=== PATIENT | female | born 1930 | race Caucasian/White ===

== ENCOUNTER 2017-05-07 11:09 | Emergency (ER) | payer MEDICARE, OTHER ==
[~2017-05-07] VITALS: Ht 152.4 cm; Wt 99.8 kg
[~2017-05-07 11:09] MED LIST: AMOXICILLIN500 MG PO; AMOXIL400 MG/5 M PO; ANTIVERT/2525 M1 PO; ANTIVERT/2525 MG PO; DIFLUCAN150 MG PO; LASIX40 MG PO; NORCO 325 MG-51 TAB PO; POTASSIUM20 MEQ PO; PRILOSEC20 M1 PO; ROBAXIN500 MG PO; ULTRAM50 MG PO; VASOTEC5 MG PO; VICODIN 500 MG-1 TAB PO; VITAMIN D1000 IU PO; ZANTAC150 MG PO; ZITHROMAX Z PA250 MG PO; ZOFRAN ODT4 MG SL
[2017-05-07 11:24] VITALS: BP 187/64
[2017-05-07 11:51] LABS: BASO # 0.1 10*3/uL (0.0-0.1); BASO % 0.6 % (0.0-1.0); EOS # 0.3 10*3/uL (0.0-0.4); EOS % 2.9 % (1.0-4.0); HEMATOCRIT 39.9 % (37.0-47.0); HEMOGLOBIN 13.4 g/dl (12.0-16.0); LYMPH # 3.3 10*3/uL (1.3-4.4); LYMPH % 35.4 % (27.0-41.0); MEAN CELL VOLUME 91.1 fl (81.0-99.0); MEAN CORPUSCULAR HGB 30.6 pg (27.0-31.0); MEAN CORPUSCULAR HGB CONC 33.6 g/dl (33.0-37.0); MEAN PLATELET VOLUME 10.7 fl (9.6-12.3); MONO # 0.6 10*3/uL (0.1-1.0); MONO % 6.3 % (3.0-9.0); NEUT % 54.4 % (47.0-73.0); PLATELET COUNT AUTOMATED 200 10*3/uL (130-400); RED BLOOD COUNT 4.38 10*6/uL (4.10-5.10); RED CELL DISTRI WIDTH 12.6 % (0-14.5); WHITE BLOOD COUNT 9.3 10*3/uL (4.8-10.8)
[2017-05-07 12:04] LABS: BUN 18 mg/dl (7-24); CARBON DIOXIDE 29 mmol/L (21-32); CHLORIDE 101 mmol/L (98-107); EST GLOM FILT AFRICAN AMERICAN > 60 ml/min; GLUCOSE 88 mg/dL (65-99); MAGNESIUM 2.1 mg/dL (1.5-2.1); POTASSIUM 3.4 mmol/L (3.5-5.1); SODIUM 140 mmol/L (136-145)
[2017-05-07] MEDS ORDERED: Meclizine25 MG PO (13:23)
== END 2017-05-07 13:38 | disposition home or self-care (01) ==
LOC: ED 11:09
PROVIDERS: Emergency Medicine
DX: H81.10 Benign paroxysmal vertigo, unspecified ear (principal); E87.6 Hypokalemia; R42 Dizziness and giddiness; R51 Headache; I25.10 Atherosclerotic heart disease of native coronary artery without angina pectoris; I10 Essential (primary) hypertension; E78.00 Pure hypercholesterolemia, unspecified; Z88.0 Allergy status to penicillin; Z88.6 Allergy status to analgesic agent; Z88.8 Allergy status to other drugs, medicaments and biological substances; Z88.4 Allergy status to anesthetic agent; Z79.899 Other long term (current) drug therapy

== ENCOUNTER → 2017-05-12 | Outpatient (CLI) | payer MEDICARE, OTHER ==
[~2017-05-12] MED LIST changes: +Meclizine25 MG PO
[2017-05-12 10:39] LABS: ALBUMIN 3.6 gm/dl (3.1-4.5); ALKALINE PHOSPHATASE 96 U/L (45-117); BUN 16 mg/dl (7-24); CHLORIDE 102 mmol/L (98-107); CHOLESTEROL 159 mg/dL (<200); HDL CHOLESTEROL 42 mg/dl (40-60); LDL CHOLESTEROL 84 mg/dL (9-159); POTASSIUM 3.8 mmol/L (3.5-5.1); SGOT/AST 21 IU/L (3-35); SGPT/ALT 13 U/L (12-78); SODIUM 139 mmol/L (136-145); TOTAL PROTEIN 7.8 gm/dL (6.4-8.2); TRIGLYCERIDES 166 mg/dl (<150); VLDL CHOLESTEROL 33 mg/dL (6-40)
== END | disposition home or self-care (01) ==
LOC: LAB 09:47
PROVIDERS: Family Medicine
DX: I25.10 Atherosclerotic heart disease of native coronary artery without angina pectoris (principal); E87.6 Hypokalemia; R60.0 Localized edema; E55.9 Vitamin D deficiency, unspecified; E78.00 Pure hypercholesterolemia, unspecified

== ENCOUNTER 2018-08-20 12:48 | Inpatient (IN) | payer MEDICARE, OTHER ==
[~2018-08-20] VITALS: Ht 152.4 cm; Wt 78.6 kg
--- NOTE | ~2018-08-20 | EKG ---
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
--- NOTE | ~2018-08-20 | CON ---
[place], [place] REPORT OF CONSULTATION NAME: KRISTI MUNOZ [facility] #: [id number] UNIT #: [id number] ROOM: 520 DOCTOR: DUC BALBUENA DPM BIRTHDATE: [birth year] DOS: 08/21/2018 SUBJECTIVE: This patient is seen today for care of elongated nails on both feet. States it has been some time since she has had her nails cut. PAST MEDICAL HISTORY: Includes coronary artery disease, dizziness, hypertension, gastroesophageal reflux disease, hiatal hernia, chronic venous insufficiency, vertigo, PVD, vitamin D deficiency. ALLERGIES: PENICILLINS, IODINE, NAPROXEN, METOPROLOL, PROCAINE AND NISOLDIPINE. CURRENT MEDICATIONS: Include potassium, lisinopril, Lovenox, Lasix, Antivert, Zofran, [place], nitro. PHYSICAL EXAMINATION: Upon lower extremity physical examination, pedal pulses are barely palpable. Skin temperature is cool to toes. Mild dependent edema is seen bilaterally with varicosities and pigment changes. Negative Homans sign bilaterally. Sensation appears grossly intact and symmetrical. No paresthesias are seen bilaterally. Muscle strength does appear full without any deficits. Mild contracture of lesser digits seen with no pain noted to palpation and range of motion of pedal joints. Plantar fat pad atrophy seen at the MPJs. Nails 1 through 5 bilaterally are thick, elongated, brittle, dystrophic with subungual debris present. No open areas seen at this time. No blisters or macerations. ASSESSMENT: Onychomycosis 1 through 5 bilaterally, PAD, venous insufficiency, hammertoe deformity. PLAN: Consult is performed. Manual debridement of mycotic nails 1 through 5 bilaterally in length and thickness to the level of the nail bed to reduce hazard of such infection. Discussed about elevating her legs to reduce peripheral edema. Shoe gear modifications to accommodate her pedal deformity. Follow up the patient in 9 weeks for continued foot care. Thanks for the opportunity to take part in care of this patient. DUC BALBUENA DPM CM:CONSTR:REPORT OF CONSULTATION 1229 08/22/18 0225 interface
[2018-08-20 12:49] VITALS: BP 192/98
[2018-08-20 13:13] LABS: BASO # 0.1 10*3/uL (0.0-0.1); BASO % 0.7 % (0.0-1.0); EOS # 0.2 10*3/uL (0.0-0.4); EOS % 2.9 % (1.0-4.0); HEMOGLOBIN 12.9 g/dl (12.0-16.0); LYMPH # 2.9 10*3/uL (1.3-4.4); LYMPH % 38.1 % (27.0-41.0); MEAN CELL VOLUME 92.9 fl (81.0-99.0); MEAN CORPUSCULAR HGB 30.7 pg (27.0-31.0); MEAN CORPUSCULAR HGB CONC 33.1 g/dl (33.0-37.0); MEAN PLATELET VOLUME 10.8 fl (9.6-12.3); MONO # 0.5 10*3/uL (0.1-1.0); NEUT # 3.9 10*3/uL (2.3-7.9); NEUT % 52.2 % (47.0-73.0); PLATELET COUNT AUTOMATED 211 10*3/uL (130-400); WHITE BLOOD COUNT 7.5 10*3/uL (4.8-10.8)
[2018-08-20 13:21] LABS: ACT PARTIAL THROMBO TIME 27.3 SECONDS (20.8-31.5)
[2018-08-20 13:31] LABS: ALBUMIN 3.8 gm/dl (3.1-4.5); ALKALINE PHOSPHATASE 86 U/L (45-117); BUN 10 mg/dl (7-24); CHLORIDE 106 mmol/L (98-107); CREATININE 0.71 mg/dL (0.55-1.02); LIPASE 92 U/L (73-393); POTASSIUM 4.1 mmol/L (3.5-5.1); SGOT/AST 20 IU/L (3-35); SGPT/ALT 14 U/L (12-78); SODIUM 140 mmol/L (136-145); TOTAL PROTEIN 7.4 gm/dL (6.4-8.2)
[2018-08-20 13:37] LABS: TROPONIN I < 0.015 ng/ml (<0.045)
[2018-08-20 14:01] VITALS: BP 199/67
[2018-08-20 14:30] LABS: BILIRUBIN NEGATIVE (NEGATIVE); BLOOD NEGATIVE (NEGATIVE); CLARITY SL CLOUDY (CLEAR); COLOR YELLOW (YELLOW); GLUCOSE NEGATIVE (NEGATIVE); KETONE TRACE (NEGATIVE); LEUKO ESTERASE 1+ (NEGATIVE); NITRITE NEGATIVE (NEGATIVE); SPECIFIC GRAVITY >= 1.030 (1.005-1.030); UROBILINOGEN 0.2 E.U./dl (0.2-1.0)
[2018-08-20 14:35] LABS: BACTERIA 2+; MUCOUS TRACE; RBC 0-2 rbc/hpf (0-2)
[2018-08-20 15:11] VITALS: BP 188/90; BP 199/67
[2018-08-20 16:45] VITALS: BP 160/80
[2018-08-20 20:00] VITALS: BP 155/71
[2018-08-21] VITALS: BP 150/65
[2018-08-21 06:42] LABS: BASO % 0.5 % (0.0-1.0); EOS # 0.1 10*3/uL (0.0-0.4); EOS % 1.7 % (1.0-4.0); HEMOGLOBIN 13.9 g/dl (12.0-16.0); LYMPH # 2.4 10*3/uL (1.3-4.4); LYMPH % 29.7 % (27.0-41.0); MEAN CELL VOLUME 90.7 fl (81.0-99.0); MEAN CORPUSCULAR HGB 30.8 pg (27.0-31.0); MEAN CORPUSCULAR HGB CONC 33.9 g/dl (33.0-37.0); MEAN PLATELET VOLUME 11.3 fl (9.6-12.3); MONO # 0.6 10*3/uL (0.1-1.0); MONO % 7.5 % (3.0-9.0); NEUT # 4.8 10*3/uL (2.3-7.9); NEUT % 60.4 % (47.0-73.0); PLATELET COUNT AUTOMATED 230 10*3/uL (130-400); RED BLOOD COUNT 4.52 10*6/uL (4.10-5.10)
[2018-08-21 07:05] LABS: BUN 9 mg/dl (7-24); CHLORIDE 102 mmol/L (98-107); CHOLESTEROL 205 mg/dL (<200); CREATININE 0.72 mg/dL (0.55-1.02); PHOSPHOROUS 4.5 mg/dL (2.5-4.9); POTASSIUM 3.5 mmol/L (3.5-5.1); SODIUM 141 mmol/L (136-145); TRIGLYCERIDES 143 mg/dl (<150); VLDL CHOLESTEROL 29 mg/dL (6-40)
[2018-08-21 07:16] LABS: HDL CHOLESTEROL 42 mg/dl (40-60); LDL CHOLESTEROL 134 mg/dL (9-159)
[2018-08-21 07:27] LABS: VITAMIN D, 25-HYDROXY 17.7 ng/mL (30-100)
[2018-08-21 08:02] VITALS: BP 148/74
[2018-08-21 11:20] VITALS: BP 148/74
[2018-08-21 12:00] VITALS: BP 146/72
[2018-08-21 16:00] VITALS: BP 128/50
[2018-08-21 20:00] VITALS: BP 104/34; BP 122/58
[2018-08-22] VITALS: BP 120/43
[2018-08-22 07:06] LABS: BASO # 0.1 10*3/uL (0.0-0.1); BASO % 0.5 % (0.0-1.0); EOS # 0.2 10*3/uL (0.0-0.4); EOS % 1.7 % (1.0-4.0); HEMATOCRIT 43.5 % (37.0-47.0); LYMPH # 3.7 10*3/uL (1.3-4.4); LYMPH % 36.4 % (27.0-41.0); MEAN CORPUSCULAR HGB 29.6 pg (27.0-31.0); MEAN CORPUSCULAR HGB CONC 32.2 g/dl (33.0-37.0); MEAN PLATELET VOLUME 11.1 fl (9.6-12.3); MONO # 0.7 10*3/uL (0.1-1.0); MONO % 7.1 % (3.0-9.0); NEUT # 5.6 10*3/uL (2.3-7.9); NEUT % 54.1 % (47.0-73.0); PLATELET COUNT AUTOMATED 261 10*3/uL (130-400); RED BLOOD COUNT 4.73 10*6/uL (4.10-5.10); WHITE BLOOD COUNT 10.3 10*3/uL (4.8-10.8)
[2018-08-22 07:23] LABS: POTASSIUM 3.8 mmol/L (3.5-5.1)
[2018-08-22 07:25] LABS: CREATININE 1.49 mg/dL (0.55-1.02)
[2018-08-22 08:00] VITALS: BP 152/64
[2018-08-22] MEDS ORDERED: VITAMIN D22000 UNIT PO (08:42)
[2018-08-22] MEDS ORDERED: K-TAB20 MEQ PO (08:42)
[2018-08-22] MEDS ORDERED: VASOTEC5 MG PO (08:42)
[2018-08-22] MEDS ORDERED: LASIX40 MG PO (08:42)
[2018-08-22] MEDS ORDERED: Meclizine25 MG PO (08:42)
[2018-08-22 12:23] VITALS: BP 152/64
== END 2018-08-22 13:49 | disposition home or self-care (01) | DRG 291 ==
LOC: ED 12:48 → EDHOLD 15:54 → 5E 15:54
PROVIDERS: Emergency Medicine; Student in an Organized Health Care Education/Training Program
PROC: 0HBRXZZ Excision of Toe Nail, External Approach (ICD-10-PCS; principal; 2018-08-21)
DX: I11.0 Hypertensive heart disease with heart failure (principal); N17.0 Acute kidney failure with tubular necrosis; I50.33 Acute on chronic diastolic (congestive) heart failure; I16.0 Hypertensive urgency; H81.10 Benign paroxysmal vertigo, unspecified ear; K44.9 Diaphragmatic hernia without obstruction or gangrene; K21.9 Gastro-esophageal reflux disease without esophagitis; I25.10 Atherosclerotic heart disease of native coronary artery without angina pectoris; I73.9 Peripheral vascular disease, unspecified; E83.41 Hypermagnesemia; E78.5 Hyperlipidemia, unspecified; R82.71 Bacteriuria; I35.0 Nonrheumatic aortic (valve) stenosis; B35.1 Tinea unguium; Z88.0 Allergy status to penicillin; Z88.8 Allergy status to other drugs, medicaments and biological substances; Z88.6 Allergy status to analgesic agent; Z88.4 Allergy status to anesthetic agent; Z91.041 Radiographic dye allergy status; Z95.1 Presence of aortocoronary bypass graft; Z90.49 Acquired absence of other specified parts of digestive tract; Z79.899 Other long term (current) drug therapy

== ENCOUNTER → 2018-08-28 | Outpatient (CLI) | payer MEDICARE, OTHER ==
[~2018-08-28] MED LIST changes: +K-TAB20 MEQ PO; +VITAMIN D22000 UNIT PO
[2018-08-28 13:31] LABS: CREATININE 1.17 mg/dL (0.55-1.02); POTASSIUM 4.1 mmol/L (3.5-5.1)
== END | disposition home or self-care (01) ==
LOC: LAB 10:10
PROVIDERS: Internal Medicine
DX: I50.9 Heart failure, unspecified (principal)

== ENCOUNTER → 2018-09-01 | Outpatient (CLI) | payer MEDICARE, OTHER | END | disposition home or self-care (01) | LOC: RESCLI 14:21 | DX: Z09 Encounter for follow-up examination after completed treatment for conditions other than malignant neoplasm (principal); I11.0 Hypertensive heart disease with heart failure; I50.31 Acute diastolic (congestive) heart failure; I50.32 Chronic diastolic (congestive) heart failure; N17.0 Acute kidney failure with tubular necrosis; E53.8 Deficiency of other specified B group vitamins; E55.9 Vitamin D deficiency, unspecified; H81.13 Benign paroxysmal vertigo, bilateral; Z79.899 Other long term (current) drug therapy; Z90.710 Acquired absence of both cervix and uterus; Z88.0 Allergy status to penicillin; Z88.8 Allergy status to other drugs, medicaments and biological substances ==

== ENCOUNTER → 2018-11-07 | Outpatient (CLI) | payer MEDICARE, OTHER ==
[2018-11-07 12:24] LABS: CREATININE 1.08 mg/dL (0.55-1.02); POTASSIUM 4.1 mmol/L (3.5-5.1)
== END | disposition home or self-care (01) ==
LOC: LAB 11:29
PROVIDERS: Internal Medicine
DX: N17.0 Acute kidney failure with tubular necrosis (principal)

== ENCOUNTER → 2019-03-26 | Outpatient (CLI) | payer MEDICARE, OTHER ==
[2019-03-26 10:24] LABS: BASO # 0.1 10*3/uL (0.0-0.1); BASO % 0.7 % (0.0-1.0); EOS # 0.5 10*3/uL (0.0-0.4); HEMATOCRIT 36.3 % (37.0-47.0); HEMOGLOBIN 11.8 g/dl (12.0-16.0); LYMPH # 2.7 10*3/uL (1.3-4.4); LYMPH % 38.1 % (27.0-41.0); MEAN CELL VOLUME 98.1 fl (81.0-99.0); MEAN CORPUSCULAR HGB 31.9 pg (27.0-31.0); MEAN CORPUSCULAR HGB CONC 32.5 g/dl (33.0-37.0); MONO # 0.5 10*3/uL (0.1-1.0); MONO % 6.7 % (3.0-9.0); NEUT # 3.3 10*3/uL (2.3-7.9); NEUT % 47.2 % (47.0-73.0); PLATELET COUNT AUTOMATED 156 10*3/uL (130-400); RED CELL DISTRI WIDTH 12.7 % (0-14.5)
[2019-03-26 10:50] LABS: CREATININE 1.07 mg/dL (0.55-1.02); POTASSIUM 4.5 mmol/L (3.5-5.1)
== END | disposition home or self-care (01) ==
LOC: LAB 09:47
PROVIDERS: Internal Medicine
DX: I50.32 Chronic diastolic (congestive) heart failure (principal); E53.8 Deficiency of other specified B group vitamins

== ENCOUNTER → 2019-03-27 | Outpatient (CLI) | payer MEDICARE, OTHER ==
--- NOTE | ~2019-03-27 | EKG ---
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1930 Requested By: ROMARIO CRISOSTOMO Order Number: [id number] Reading MD: Romario Crisostomo MD Measurements Intervals [place] Rate: 56 P: 12 ME: 200 QRS: -9 QRSD: 107 T: 1 QT: 492 QTc: 475 Interpretive Statements Sinus rhythm Inferior infarct, old Anteroseptal infarct, old Compared to ECG 08/20/2018 13:00:43 Myocardial infarct finding now present Left bundle-branch block no longer present Q waves no longer present Electronically Signed On 03-28-2019 8:00:40 PDT by Romario Crisostomo MD CM:EKGRPT:ELECTROCARDIOGRAM REPORT [id number] ROMARIO CRISOSTOMO MD EPIPHANY DRAFT REPORT ROMARIO CRISOSTOMO MD
== END | disposition home or self-care (01) ==
LOC: RESCLI 00:40
DX: I11.0 Hypertensive heart disease with heart failure (principal); I50.32 Chronic diastolic (congestive) heart failure; E55.9 Vitamin D deficiency, unspecified; H81.13 Benign paroxysmal vertigo, bilateral; E53.8 Deficiency of other specified B group vitamins; Z95.1 Presence of aortocoronary bypass graft; Z79.899 Other long term (current) drug therapy; Z90.49 Acquired absence of other specified parts of digestive tract; Z88.8 Allergy status to other drugs, medicaments and biological substances

== ENCOUNTER → 2019-06-05 | Outpatient (CLI) | payer MEDICARE, OTHER | END | disposition home or self-care (01) | LOC: RESCLI 01:23 | DX: I11.0 Hypertensive heart disease with heart failure (principal); I50.32 Chronic diastolic (congestive) heart failure; E55.9 Vitamin D deficiency, unspecified; I25.10 Atherosclerotic heart disease of native coronary artery without angina pectoris; R59.9 Enlarged lymph nodes, unspecified; Z95.1 Presence of aortocoronary bypass graft; Z79.899 Other long term (current) drug therapy ==

== ENCOUNTER → 2019-07-17 | Outpatient (CLI) | payer MEDICARE, OTHER | END | disposition home or self-care (01) | LOC: RESCLI 00:30 | DX: Z12.11 Encounter for screening for malignant neoplasm of colon (principal); E55.9 Vitamin D deficiency, unspecified; I11.0 Hypertensive heart disease with heart failure; I50.32 Chronic diastolic (congestive) heart failure; I25.810 Atherosclerosis of coronary artery bypass graft(s) without angina pectoris; H81.10 Benign paroxysmal vertigo, unspecified ear; D64.9 Anemia, unspecified; Z79.899 Other long term (current) drug therapy ==

== ENCOUNTER → 2019-10-29 | Outpatient (CLI) | payer MEDICARE, OTHER | END | disposition home or self-care (01) | LOC: RESCLI 00:24 | DX: I13.0 Hypertensive heart and chronic kidney disease with heart failure and stage 1 through stage 4 chronic kidney disease, or unspecified chronic kidney disease (principal); I50.32 Chronic diastolic (congestive) heart failure; N18.3 Chronic kidney disease, stage 3 (moderate); E55.9 Vitamin D deficiency, unspecified; I25.810 Atherosclerosis of coronary artery bypass graft(s) without angina pectoris; H81.10 Benign paroxysmal vertigo, unspecified ear; D64.9 Anemia, unspecified; Z12.11 Encounter for screening for malignant neoplasm of colon; E78.5 Hyperlipidemia, unspecified; Z88.0 Allergy status to penicillin; Z88.8 Allergy status to other drugs, medicaments and biological substances ==

== ENCOUNTER → 2020-05-23 | Outpatient (CLI) | payer MEDICARE, OTHER | END | disposition home or self-care (01) | LOC: RAD 07:19 | PROVIDERS: ATTEND Nurse Practitioner Family | DX: E66.01 Morbid (severe) obesity due to excess calories (principal); I10 Essential (primary) hypertension; R60.9 Edema, unspecified; E78.2 Mixed hyperlipidemia ==

== ENCOUNTER → 2021-04-23 | Outpatient (CLI) | payer MEDICARE, OTHER | END | disposition home or self-care (01) | LOC: CARD 11:59 | PROVIDERS: ATTEND Family Medicine | DX: I08.3 Combined rheumatic disorders of mitral, aortic and tricuspid valves (principal); I27.20 Pulmonary hypertension, unspecified ==

== ENCOUNTER 2021-11-22 14:26 | Emergency (ER) | payer MEDICARE, OTHER ==
[~2021-11-22] VITALS: Ht 149.8 cm; Wt 81.6 kg
[2021-11-22 14:36] VITALS: BP 146/68
[2021-11-22 15:19] LABS: BASO % 0.5 % (0.0-1.0); EOS # 0.4 10*3/uL (0.0-0.4); EOS % 4.5 % (1.0-4.0); HEMATOCRIT 32.8 % (37.0-47.0); LYMPH # 2.9 10*3/uL (1.3-4.4); MEAN CELL VOLUME 95.1 fl (81.0-99.0); MEAN CORPUSCULAR HGB 30.4 pg (27.0-31.0); MEAN PLATELET VOLUME 11.4 fl (9.6-12.3); MONO # 0.6 10*3/uL (0.1-1.0); MONO % 7.1 % (3.0-9.0); NEUT # 4.3 10*3/uL (2.3-7.9); NEUT % 52.8 % (47.0-73.0); PLATELET COUNT AUTOMATED 201 10*3/uL (130-400); RED BLOOD COUNT 3.45 10*6/uL (4.10-5.10); RED CELL DISTRI WIDTH 13.4 % (0-14.5); WHITE BLOOD COUNT 8.2 10*3/uL (4.8-10.8)
[2021-11-22 15:30] LABS: ACT PARTIAL THROMBO TIME 27.6 SECONDS (20.0-32.1)
[2021-11-22 15:33] LABS: BUN 15 mg/dl (7-24); CHLORIDE 105 mmol/L (98-107); CREATININE 0.99 mg/dL (0.55-1.02); POTASSIUM 3.6 mmol/L (3.5-5.1); SODIUM 141 mmol/L (136-145)
== END 2021-11-22 15:57 | disposition home or self-care (01) ==
LOC: ED 14:26
PROVIDERS: Emergency Medicine
DX: I49.3 Ventricular premature depolarization (principal); I25.10 Atherosclerotic heart disease of native coronary artery without angina pectoris; E78.5 Hyperlipidemia, unspecified; I10 Essential (primary) hypertension; Z88.0 Allergy status to penicillin; Z88.8 Allergy status to other drugs, medicaments and biological substances; Z95.1 Presence of aortocoronary bypass graft; Z90.49 Acquired absence of other specified parts of digestive tract; Z98.890 Other specified postprocedural states

== ENCOUNTER → 2021-12-24 | Outpatient (CLI) | payer MEDICARE, OTHER | END | disposition home or self-care (01) | LOC: CARD 14:00 | PROVIDERS: ATTEND Family Medicine | DX: I08.1 Rheumatic disorders of both mitral and tricuspid valves (principal) ==